=== PATIENT | male | born 1980 | race African-American/Black ===

== ENCOUNTER 2017-06-21 09:36 | Emergency (ER) | payer SELFPAY ==
[2017-06-21 10:21] LABS: Bilirubin Negative (Negative); Blood, Urine Small (Negative); Glucose, Urine (Dipstick) 100 mg/dL (Negative); Ketone, Urine Negative (Negative); Nitrite Negative (Negative); Protein, Urine (Dipstick) Negative (Neg-Trace); Urobilinogen 0.2 mg/dL (0.2-1.0)
[2017-06-21 10:36] LABS: Bacteria/HPF 1+ HPF (None Seen); Hyaline Casts/LPF NONE SEEN LPF (0-3 Hyaline)
[2017-06-21 11:05] LABS: #Basophils 0.1 thou/uL (0.0-0.2); #Lymphocytes 1.1 thou/uL (1.20-3.40); #Monocytes 1.4 thou/uL (0.11-0.59); #Neutrophils 16.9 thou/uL (1.40-6.50); %Basophils 0.3 % (0.0-1.0); %Eosinophils 0.1 % (0.0-10.0); %Lymphocytes 5.7 % (21.0-51.0); %Monocytes 7.2 % (0.0-10.0); Hematocrit 47.7 % (42.0-52.0); Mean Platelet Volume 8.4 fL (7.4-10.4); Red Blood Cell (RBC) Count 4.91 mill/uL (4.70-6.10); White Blood Cell (WBC) Count 19.5 thou/uL (4.8-10.8)
--- NOTE | 2017-06-21 11:23 | ULT ---
TESTICULAR ULTRASOUND: Date: 06/21/17 HISTORY: Left testicular pain and swelling. FINDINGS: Both testicles have a normal sonographic appearance. Testicles are symmetric with the right measurin g 2.5 x 4.4 x 2.5 cm and left measuring 3.1 x 4.1 x 2.7 cm. Color Doppler with spectral analysis reveals blood flow to both testicles. There is a small left hydrocele. Color Doppler does show increased blood flow in the region of the left epididymis. This could repres ent epididymitis. The small left hydrocele also shows some internal septations. IMPRESSION: Small left hydrocele. The hydrocele does exhibit some internal septation. There is hypervascularity to the left epididymis. POS: [facility]
[2017-06-21] MEDS ORDERED: Ibuprofen 800 MG TAB ONE (11:24)
[2017-06-21 11:30] LABS: ALT (SGPT) 12 U/L (8-55); AST (SGOT) 14 U/L (5-34); Alkaline Phosphatase 90 U/L (40-150); Anion Gap 14 mmol/L (10-20); BUN (Urea Nitrogen) 5 mg/dL (8.9-20.6); Bilirubin, Total 0.6 mg/dL (0.2-1.2); Calc. Creatinine Clearance 0 mL/min (70-130); Calcium 10.4 mg/dL (7.8-10.44); Carbon Dioxide 26 mmol/L (22-29); Chloride 95 mmol/L (98-107); Estimated GFR-MDRD Greater than 90; Globulin 4.7 g/dL (2.4-3.5)
[2017-06-21] MEDS ORDERED: cefTRIAXone\\ROCEPHIN 1 GM, Admixture Fee 1 EACH in Sodium Chloride 0.9% 100 ML IVPB SCH (12:00)
[2017-06-21] MEDS ORDERED: Lidocaine 1% (PF) 30 ML VIAL ONE (12:01)
[2017-06-21] MEDS ORDERED: cefTRIAXone\\ROCEPHIN 1 GM VIAL ONE (12:01)
[2017-06-21] MEDS ORDERED: Azithromycin 250 MG TAB ONE (12:01)
== END 2017-06-21 12:32 | disposition home or self-care (01) ==
LOC: ERS 09:36
DX: N45.1 Epididymitis (principal); J45.909 Unspecified asthma, uncomplicated
CPT/HCPCS: 36415; 76870; 80053; 81003; 81015; 85025; 93976; 96372; J0696; J2001; J7050